=== PATIENT | female | born 1980 | race Caucasian/White ===

== ENCOUNTER 2017-12-01 15:44 | Emergency (ER) | payer BC ==
[~2017-12-01] VITALS: Ht 172.7 cm; Wt 102.1 kg
[~2017-12-01 15:44] MED LIST: ADVIL200 MG PO; ALBUTEROL0.09 MG/A2 INH; CIPROFLOXACIN500 MG PO; CYCLOBENZAPRINE10 MG PO; DARVOCET N 1001 TAB PO; DAYPRO600 M1 PO; FLEXERIL10 MG PO; HYDROCODONE BIT1 T11 PO; MEDROL DOSEPAK4 MG PO; Motrin,Rufen400 MG PO; NORCO 5-325 TA1 EACH PO; PREDNICOT20 MG PO; PREDNISONE10 MG PO; ROBAXIN500 MG PO; ROBAXIN750 MG PO; ROBITUSSIN AC 110 ML PO; VICODIN 5-3001 EACH PO; VICODIN 5/500 505 MG PO; ZITHROMAX Z PA250 MG PO
[2017-12-01] MEDS ORDERED: CYCLOBENZAPRINE10 MG PO (16:24)
[2017-12-01] MEDS ORDERED: NAPROSYN500 MG PO (16:24)
[2017-12-01] MEDS ORDERED: PREDNISONE20 M1 PO (16:24)
== END 2017-12-01 16:44 | disposition home or self-care (01) ==
LOC: ED 15:44
DX: M54.31 Sciatica, right side (principal); F17.200 Nicotine dependence, unspecified, uncomplicated; Z79.899 Other long term (current) drug therapy; Z90.89 Acquired absence of other organs

== ENCOUNTER → 2018-09-20 | Outpatient (CLI) | payer BC ==
[~2018-09-20] MED LIST changes: +NAPROSYN500 MG PO; +PREDNISONE20 M1 PO
[2018-09-20 14:00] LABS: HEMATOCRIT 38.5 % (37.0-47.0); HEMOGLOBIN 12.7 g/dl (12.0-16.0); MEAN CELL VOLUME 96.3 fl (81.0-99.0); MEAN CORPUSCULAR HGB 31.8 pg (27.0-31.0); MEAN PLATELET VOLUME 9.1 fl (9.6-12.3); WHITE BLOOD COUNT 6.1 10*3/uL (4.8-10.8)
[2018-09-20 14:30] LABS: ALBUMIN 3.6 gm/dl (3.1-4.5); ALKALINE PHOSPHATASE 53 U/L (45-117); BUN 12 mg/dl (7-24); CHLORIDE 110 mmol/L (98-107); CHOLESTEROL 119 mg/dL (<200); CREATININE 0.71 mg/dL (0.55-1.02); FREE T4 0.83 ng/dl (0.76-1.46); HDL CHOLESTEROL 29 mg/dl (40-60); LDL CHOLESTEROL 64 mg/dL (9-159); POTASSIUM 4.1 mmol/L (3.5-5.1); SGOT/AST 14 IU/L (3-35); SGPT/ALT 35 U/L (12-78); SODIUM 141 mmol/L (136-145); TOTAL PROTEIN 7.1 gm/dL (6.4-8.2); TRIGLYCERIDES 132 mg/dl (<150); VLDL CHOLESTEROL 26 mg/dL (6-40)
[2018-09-20 14:35] LABS: THYROID STIM HORMONE (HS) 0.565 uIU/ml (0.358-4.75)
[2018-09-20 16:08] LABS: VITAMIN D, 25-HYDROXY 20.8 ng/mL (30-100)
[2018-09-24 14:06] LABS: HLA-B27 ANTIGEN Negative (.)
== END | disposition home or self-care (01) ==
LOC: LAB 13:29
PROVIDERS: Family Medicine
DX: E03.9 Hypothyroidism, unspecified (principal); M54.5 Low back pain; E78.00 Pure hypercholesterolemia, unspecified; R63.5 Abnormal weight gain; G25.81 Restless legs syndrome

== ENCOUNTER → 2019-08-01 | Outpatient (CLI) | payer BC | END | disposition home or self-care (01) | LOC: RAD 16:24 | DX: M43.22 Fusion of spine, cervical region (principal) ==

== ENCOUNTER → 2019-08-04 | Outpatient (CLI) | payer BC | END | disposition home or self-care (01) | LOC: CT 14:00 | DX: S09.90XA Unspecified injury of head, initial encounter (principal); G31.84 Mild cognitive impairment of uncertain or unknown etiology; W19.XXXA Unspecified fall, initial encounter; Y93.89 Activity, other specified; Y92.89 Other specified places as the place of occurrence of the external cause; Y99.8 Other external cause status ==

== ENCOUNTER 2019-09-28 09:29 | Emergency (ER) | payer BC ==
[~2019-09-28] VITALS: Ht 172.7 cm; Wt 106.6 kg
[2019-09-28] MEDS ORDERED: PREDNISONE20 M1 PO (09:48)
[2019-09-28] MEDS ORDERED: ROBAXIN-750750 MG PO (09:48)
== END 2019-09-28 10:06 | disposition home or self-care (01) ==
LOC: ED 09:29
DX: M54.5 Low back pain (principal); F17.200 Nicotine dependence, unspecified, uncomplicated; Z79.899 Other long term (current) drug therapy

== ENCOUNTER → 2020-03-06 | Outpatient (CLI) | payer BC ==
[~2020-03-06] MED LIST changes: +ROBAXIN-750750 MG PO
== END | disposition home or self-care (01) ==
LOC: RAD 13:21
DX: S92.911A Unspecified fracture of right toe(s), initial encounter for closed fracture (principal); R22.41 Localized swelling, mass and lump, right lower limb; X58.XXXA Exposure to other specified factors, initial encounter; Y93.89 Activity, other specified; Y92.89 Other specified places as the place of occurrence of the external cause; Y99.8 Other external cause status

== ENCOUNTER 2020-03-09 18:16 | Emergency (ER) | payer BC ==
[~2020-03-09] VITALS: Ht 175.2 cm; Wt 93.0 kg
[2020-03-09] MEDS ORDERED: MEDROL DOSEPAK4 MG PO (18:38)
== END 2020-03-09 18:45 | disposition home or self-care (01) ==
LOC: ED 18:16
DX: M54.16 Radiculopathy, lumbar region (principal); Z79.899 Other long term (current) drug therapy

== ENCOUNTER 2020-08-20 10:31 | Emergency (ER) | payer BC ==
[~2020-08-20] VITALS: Wt 98.9 kg
[2020-08-20] MEDS ORDERED: PREDNISONE50 MG PO (12:11)
[2020-08-20] MEDS ORDERED: CYCLOBENZAPRINE5 M3 PO (12:11)
== END 2020-08-20 13:23 | disposition home or self-care (01) ==
LOC: ED 10:31
DX: M54.5 Low back pain (principal); G89.29 Other chronic pain; M54.16 Radiculopathy, lumbar region; F17.200 Nicotine dependence, unspecified, uncomplicated; Z98.890 Other specified postprocedural states; Z79.899 Other long term (current) drug therapy

== ENCOUNTER → 2025-07-08 | Emergency (ER) | payer BC ==
[~2025-07-08] VITALS: Ht 175.2 cm; Wt 99.8 kg
[~2025-07-08] MED LIST changes: +ALBUTEROL 8 GM INHALER INH ONE; +Albuterol Sulf/Ipratropium 3 ML VIAL NEB ONE; +CYCLOBENZAPRINE5 M3 PO; +Dexamethasone Sodium Phospha 20 MG/5 ML VIAL IV ONE; +METHOCARBAMOL750 M1 PO; +Ondansetron Hydrochloride 4 MG/2 ML VIAL IV ONE; +PREDNISONE50 MG PO; +TRAMADOL HCL50 MG PO; +VENT7GM INH; +diazePAM 5 MG TAB PO ONE
[2025-07-08 15:09] LABS: BASO # 0.1 10*3/uL (0.0-0.1); BASO % 0.6 % (0.0-1.0); EOS # 0.5 10*3/uL (0.0-0.4); EOS % 6.6 % (1.0-4.0); MEAN CELL VOLUME 93.7 fl (81.0-99.0); MEAN CORPUSCULAR HGB 30.0 pg (27.0-31.0); MEAN PLATELET VOLUME 9.2 fl (9.6-12.3); MONO # 0.7 10*3/uL (0.1-1.0); MONO % 8.7 % (3.0-9.0); NEUT # 4.7 10*3/uL (2.3-7.9); NEUT % 61.1 % (47.0-73.0); NUCLEATED RED BLOOD CELL 0.0 % (0.0-0.0); NUCLEATED RED BLOOD CELL 0.0 10*3/uL (0.0-0.0); PLATELET COUNT AUTOMATED 403 10*3/uL (130-400); RED CELL DISTRI WIDTH 14.0 % (0-14.5)
[2025-07-08 15:36] LABS: BUN 10 mg/dl (9-23)
== END ==
LOC: ED 13:51
PROVIDERS: Emergency Medicine
DX: M54.12 Radiculopathy, cervical region (principal); J40 Bronchitis, not specified as acute or chronic; M99.01 Segmental and somatic dysfunction of cervical region; Z20.822 Contact with and (suspected) exposure to COVID-19

== ENCOUNTER → 2025-07-12 | Outpatient (CLI) | payer BC ==
[~2025-07-12] MED LIST changes: -ALBUTEROL 8 GM INHALER INH ONE; -Albuterol Sulf/Ipratropium 3 ML VIAL NEB ONE; -Dexamethasone Sodium Phospha 20 MG/5 ML VIAL IV ONE; -Ondansetron Hydrochloride 4 MG/2 ML VIAL IV ONE; -diazePAM 5 MG TAB PO ONE
== END | disposition home or self-care (01) ==
LOC: MRI 10:56
PROVIDERS: ATTEND Nurse Practitioner Family
DX: M47.812 Spondylosis without myelopathy or radiculopathy, cervical region (principal); M48.02 Spinal stenosis, cervical region; M25.78 Osteophyte, vertebrae; M96.0 Pseudarthrosis after fusion or arthrodesis